=== PATIENT | male | born 1990 | race Caucasian/White ===

== ENCOUNTER 2017-02-18 20:42 | Emergency (ER) | payer OTHER ==
--- NOTE | 2017-02-18 20:50 | EDPHY ---
H & P Stated Complaint: Allergy Time Seen by Provider: 02/18/17 20:50 - Personal History Current Tetanus Diphtheria and Acellular Pertussis (TDAP): Yes - Medical/Surgical History Hx Asthma: Yes Hx Chronic Respiratory Disease: No Hx Diabetes: No Hx Cardiac Disease: No Hx Renal Disease: No Hx Cirrhosis: No Hx Alcoholism: No Hx HIV/AIDS: No Hx Splenectomy or Spleen Trauma: No Other PMH: Asthma - Social History Smoking Status: Never smoked Constitutional: Initial Vital Signs Temperature (C) 36.8 C 02/18/17 20:43 Heart Rate 76 02/18/17 20:43 Respiratory Rate 18 02/18/17 20:43 Blood Pressure 149/81 H 02/18/17 20:43 O2 Sat (%) 96 02/18/17 20:43 O2 Delivery Mode Room Air Allergies/Adverse Reactions: shellfish derived Allergy (Verified 02/18/17 20:43) tree nut Allergy (Verified 02/18/17 20:43) Home Medications: Medication Instructions Recorded Albuterol 02/18/17 EPINEPHrine [Epipen 0.3 MG] 0.3 mg IM ONCE #2 syr 02/18/17 Medical Decision Making ED Course/Re-evaluation: CHIEF COMPLAINT: Allergic reaction HISTORY OF PRESENT ILLNESS: The patient is a 26 y/o male arriving with his friends complaining of mild throat swelling and face tingling after eating a walnut tonight about 20 minutes ago. He has a known tree nut allergy and accidentally ate a walnut in a salad at a restaurant. He took 3 Claritin as he did not have any Benadryl or an EpiPen available. He denies shortness of breath , difficulty speaking, or difficulty swallowing. REVIEW OF SYSTEMS: A 10 point review of systems was performed and is negative with the exception of the elements mentioned in the history of present illness. PHYSICAL EXAM: HR, BP, O2 Sat, RR. Temp noted General Appearance: Alert, well hydrated, appropriate, and non-toxic appearing. Laughing. Head: Atraumatic without scalp tenderness or obvious injury. No obvious facial swelling. Eyes: Pupils equal, round, reactive to light and accommodation, EOMI, no trauma , no injection. Ears: Clear bilaterally, no perforation, normal landmarks Nose: Atraumatic, no rhinorrhea, clear. Throat: There is no erythema or exudates, no lesions, normal tonsils, mucus membranes moist. Uvula midline. No angioedema. Normal posterior and anterior pharynx. Neck: Supple, nontender, no lymphadenopathy. Respiratory: No retractions, no distress, no wheezes, and no accessory muscle use. Lungs are clear to auscultation bilaterally. Cardiovascular: Regular rate and rhythm, no murmurs, rubs, or gallops. Good capillary refill all extremities. Gastrointestinal: Abdomen is soft, nontender, non-distended, no masses, no rebound, no guarding, no peritoneal signs. Musculoskeletal: Normal active ROM of all extremities, atraumatic. Neurological: Alert, appropriate, and interactive. The patient has non-focal cranial nerves, motor, sensory, and cerebellar exam. Skin: No rashes, good turgor, no nodules on palpation. Past medical history: Tree nut and peanut allergy Past surgical history: noncontributory Family history: noncontributory Social history: Friends at bedside DIFFERENTIAL DIAGNOSIS: The differential diagnosis included but was not limited to angioedema, anaphylaxis, anaphylactoid reaction, urticarial reaction , and other infectious causes for skin rash. MEDICAL DECISION MAKING: This is a well-appearing 26 y/o male with known tree nut allergy who presents for evaluation of perceived throat swelling after eating a walnut 20 minutes ago. His exam is completely normal. He is laughing and has no evidence of airway or respiratory involvement. Plan for 60mg PO prednisone, 50mg PO Benadryl , and 40mg PO Pepcid and observation. He will be discharged home in good condition with script for EpiPen and recommendation to follow up with barrel rifler broach as needed. Return precautions discussed. Departure - Departure Disposition: Home, Routine, Self-Care Clinical Impression: Allergic reaction Qualifiers: Encounter type: initial encounter Qualified Code(s): T78.40XA - Allergy, unspecified, initial encounter Condition: Good Instructions: Food Allergy (ED), General Allergic Reaction (ED) Additional Instructions: 1. Take 25mg Benadryl over the next 1-2 days if needed for continued symptoms. 2. Carry an EpiPen with you at all times. 3. Follow up with an barrel rifler broach if needed for unimproved symptoms. 4. Return to the ED for difficulty breathing, difficulty swallowing, or other worsening of condition. Referrals: Mónica Elizalde MD [Medical Doctor] - As per Instructions Prescriptions: EPINEPHrine [Epipen 0.3 MG] 0.3 mg IM ONCE #2 syr Report Scribed for: Tahir Jacinto Report Scribed by: Gloria Little Date of Report: 02/18/17 Time of Report: 20:56
[2017-02-18] MEDS ORDERED: predniSONE 20 MG TAB ONE (20:53)
[2017-02-18] MEDS ORDERED: FAMOTIDINE 20 MG TAB ONE (20:53)
[2017-02-18] MEDS ORDERED: diphenhydrAMINE 25 MG CAP PO ONE ×2 (20:53→20:55)
[2017-02-18] MEDS ORDERED: FAMOTIDINE 20 MG TAB PO ONE (20:55)
[2017-02-18] MEDS ORDERED: predniSONE 20 MG TAB PO ONE (20:55)
[2017-02-18 21:34] VITALS: BP 126/71; PULSE 82; RESP 16; TEMP 97.7; O2SAT 35
== END 2017-02-18 21:33 | disposition home or self-care (01) ==
DX: T78.1XXA Other adverse food reactions, not elsewhere classified, initial encounter (principal); R22.1 Localized swelling, mass and lump, neck; J45.909 Unspecified asthma, uncomplicated; Z91.010 Allergy to peanuts